=== PATIENT | male | born 1980 | race Two or more races ===

== ENCOUNTER 2021-07-26 00:38 | Emergency (ER) | payer SELFPAY ==
[~2021-07-26] VITALS: Ht 165.1 cm; Wt 65.8 kg
[2021-07-26 00:52] VITALS: BP 129/77
[2021-07-26] MEDS ORDERED: CEPH500T PO (01:00)
== END 2021-07-26 01:13 | disposition home or self-care (01) ==
LOC: ER 00:47
DX: T24.002A Burn of unspecified degree of unspecified site of left lower limb, except ankle and foot, initial encounter (principal); L03.314 Cellulitis of groin; Z59.00 Homelessness unspecified; X58.XXXA Exposure to other specified factors, initial encounter; Y93.89 Activity, other specified; Y92.89 Other specified places as the place of occurrence of the external cause; Y99.8 Other external cause status

== ENCOUNTER 2021-07-31 22:37 | Inpatient (IN) | payer MEDICAID ==
[~2021-07-31] VITALS: Ht 167.6 cm; Wt 64.4 kg
[~2021-07-31 22:37] MED LIST: CEPH500T PO
[2021-07-31] MEDS ORDERED: MORPHINE SULFATE INJ 2 MG/ML DISP.SYRIN IV ONE (23:00)
[2021-07-31] MEDS ORDERED: ONDANSETRON HCL/PF 4 MG/2 ML VIAL IVP ONE (23:00)
[2021-07-31] MEDS ORDERED: IV NS 0.9% 1,000 ML BAG IV ONE (23:00)
[2021-07-31] MEDS ORDERED: KETOROLAC TROMETHAMINE INJ 30 MG/ML VIAL IV ONE (23:00)
[2021-07-31 23:09] LABS: BILIRUBIN,URINE NEGATIVE (NEGATIVE); COLOR,URINE YELLOW (YELLOW); LEUKOCYTE ESTERASE ,URINE SMALL (NEGATIVE); NITRITE, URINE NEGATIVE (NEGATIVE); PROTEIN,URINE NEGATIVE (NEGATIVE); UGLUCOSE NEGATIVE (NEGATIVE); UROBILINOGEN,URINE 0.2 EU/dL (0.2)
--- NOTE | 2021-07-31 23:15 | NUR ---
BIBS PT A/O X 3 BHUTANESE SPEAKING, C/O SPIDER BITE ON TESTICLE, NOW COMPLAINING MORE PAIN WITH PUS TO TESTICLE AREA AND PENILE AREA.
[2021-07-31] MEDS ORDERED: CT SWABBABLE VALVE TRANS SET 1 EA INFUS.SET MC ONE (23:23)
[2021-07-31] MEDS ORDERED: IOHEXOL-300 100 ML VIAL IV ONE (23:23)
[2021-07-31] MEDS ORDERED: MORPHINE SULFATE INJ 4 MG/ML DISP.SYRIN ONE (23:33)
[2021-07-31] MEDS ORDERED: ONDANSETRON HCL/PF 4 MG/2 ML VIAL ONE (23:33)
[2021-07-31] MEDS ORDERED: KETOROLAC TROMETHAMINE 15 MG/ML VIAL ONE (23:33)
--- NOTE | 2021-07-31 23:35 | NUR ---
LABS COLLECTED AND SENT
--- NOTE | 2021-07-31 23:41 | NUR ---
PHYSICS TECHNICAL OFFICER AT BEDSIDE
--- NOTE | 2021-07-31 23:45 | NUR ---
COVID SWAB COLLECTED AND SENT
[2021-08-01 00:02] LABS: CALCIUM, SERUM 8.9 mg/dL (8.5-10.1); CREATININE 0.8 mg/dL (0.6-1.3); POTASSIUM 3.5 mmol/L (3.5-5.1)
[2021-08-01 00:10] LABS: BASOPHILS % (AUTO) 0.6 % (0.0-2.0); EOSINOPHILS % (AUTO) 1.3 % (0.0-6.0); HEMATOCRIT 38 % (39-51); HEMOGLOBIN 13.1 g/dL (13.5-17.5); LYMPHOCYTES # (AUTO) 1.1 K/uL (0.8-4.8); LYMPHOCYTES % (AUTO) 14.3 % (20.0-44.0); MEAN CORPUSCULAR HGB CONC 34 g/dl (31.0-36.0); MEAN CORPUSCULAR VOLUME 88 fL (80-96); MONOCYTES # (AUTO) 0.6 K/uL (0.1-1.30); MONOCYTES % (AUTO) 7.7 % (2.0-12.0); NEUTROPHILS # (AUTO) 6.1 K/uL (1.8-8.9); NEUTROPHILS % (AUTO) 76.1 % (43.0-81.0); PLATELET COUNT (AUTO) 222 K/uL (150-450); RED BLOOD CELL COUNT(AUTO) 4.31 MIL/uL (4.5-6.0)
--- NOTE | 2021-08-01 00:15 | NUR ---
PT OUT TO CT
[2021-08-01 00:18] LABS: ALBUMIN 3.3 g/dL (3.4-5.0); BILIRUBIN,DIRECT 0.1 mg/dL (0.0-0.2); BILIRUBIN,TOTAL 0.4 mg/dL (0.2-1.0); TOTAL PROTEIN, SERUM 6.9 g/dL (6.4-8.2)
[2021-08-01] MEDS ORDERED: VANCOMYCIN 1 GM in IV D5W 250 ML IV ONE (02:30)
[2021-08-01] MEDS ORDERED: PIPERACILLIN /TAZOBACTAM 3.375 G in IV D5W 50 ML IV ONE (02:30)
[2021-08-01] MEDS ORDERED: VANCOMYCIN 1 GM VIAL ONE (02:33)
[2021-08-01] MEDS ORDERED: PIPERACILLIN /TAZOBACTAM 3.375 G VIAL IV ONE (02:34)
[2021-08-01] MEDS ORDERED: HYDROCODONE/APAP 5/325MG TABLET PO PRN (04:30)
[2021-08-01] MEDS ORDERED: Z GUARD REMEDY 4 OZ OINT TP PRN (04:30)
[2021-08-01] MEDS ORDERED: MAG HYDROX/AL HYDROX/SIMETH 30 ML UDC PO PRN (04:30)
[2021-08-01] MEDS ORDERED: TEMAZEPAM 15 MG CAPSULE PO PRN (04:30)
[2021-08-01] MEDS ORDERED: ONDANSETRON HCL/PF 4 MG/2 ML VIAL IVP PRN (04:30)
[2021-08-01] MEDS ORDERED: ACETAMINOPHEN 325 MG TABLET PO PRN (04:30)
[2021-08-01] MEDS ORDERED: MAGNESIUM HYDROXIDE 30 ML UDC PO PRN (04:30)
--- NOTE | 2021-08-01 04:44 | NUR ---
REPORT GIVEN TO 3 LOUIE RN
[2021-08-01 04:55] VITALS: BP 109/77
[2021-08-01] MEDS ORDERED: PIPERACILLIN /TAZOBACTAM 3.375 G in IV D5W 50 ML IV SCH (05:00)
[2021-08-01 06:58] LABS: BACTERIA,URINE Few /HPF (None Seen); RBC,URINE 0-2 /HPF (0-2); SQUAMOUS EPITHELIAL CELL,UR 0-2 /HPF (None Seen)
--- NOTE | 2021-08-01 07:26 | NUR ---
RN OPENING NOTES RECEIVED PATIENT IN BED, ASLEEP, EASILY AROUSED. NO SIGNS OF ACUTE DISTRESS NOTED. ON ROOM AIR, NO SOB NOTED, BREATHING EVEN AND UNLABORED. DENIES ANY PAIN AT THIS TIME. NOTED WITH IV ACCESS ON RIGHT ANTECUBITAL #20G, INTACT AND PATENT, SALINE LOCKED. SAFETY MEASURE IN PLACE. BED IN LOWEST AND LOCKED OSITION, SR UP X2, CALL LIGHT PLACED WITHIN EASY REACH. WILL CONTINUE TO MONITOR.
--- NOTE | 2021-08-01 07:55 | NUR ---
RN DANIELE NOTES. NEW ADMIT PATIENT RECEIVED FROM ONE PERSONEL FROM ER VIA URN.PT AOX4 YOR[place] SPEAKING WITH A LITTLE CITIZEN OF [place].NO SIGN SOB/DISTRESS NOTED.NO COMPLAINED OF PAIN/DISCOMFORT.RAC #20G INTACT AND PATENT.ALL NEEDS ATTENDED,CALL LIGHT WITHIN REACH.SAFETY MEASURE IMPLACE LOW BED LOCK.WELL ENDORSE TO NEXT SHIFT.
[2021-08-01 08:00] VITALS: BP 130/61
[2021-08-01] MEDS: PANTOPRAZOLE 40 MG TABLET.DR PO SCH (08:28)
[2021-08-01] MEDS: PIPERACILLIN /TAZOBACTAM 3.375 G in IV D5W 100 ML IV SCH ×2 (08:58→15:58)
[2021-08-01] MEDS: VANCOMYCIN 1 GM in IV D5W 250ml IV SCH ×2 (11:15→18:21)
[2021-08-01] MEDS: BLOOD SUGAR DIAGNOSTIC 1 EACH STRIP VI SCH ×3 (11:32→21:50)
[2021-08-01] MEDS ORDERED: DEXTROSE 50%-WATER 50 ML DISP.SYRIN IV PRN (12:00)
[2021-08-01 16:00] VITALS: BP 116/79
[2021-08-01] MEDS: INSULIN REGULAR, HUMAN 100 UNIT/ML 3 ML VIAL SQ PRN (16:44)
--- NOTE | 2021-08-01 18:59 | NUR ---
RN CLOSING NOTES PATIENT IN BED, ASLEEP, EASILY AROUSED. NO SIGNS OF ACUTE DISTRESS NOTED. REMAINS STABLE ON ROOM AIR, NO SOB NOTED, BREATHING EVEN AND UNLABORED. IV ACCESS ON RIGHT ANTECUBITAL #20G AND LEFT FORE ARM #18G, INTACT AND PATENT, SALINE LOCKED. SAFETY MEASURE MAINTAINED. BED IN LOWEST AND LOCKED POSITION, SR UP X2, CALL LIGHT PLACED WITHIN EASY REACH. WILL ENDORSE TO NEXT SHIFT FOR DAMARIS.
--- NOTE | 2021-08-01 19:42 | NUR ---
RN OPENING NOTE PATIENT AWAKE IN BED. A/OX4. NO S/S OF DISTRESS, BREATHING WELL ON RM AIR. RAC#20, LFA #18 INTACT AND PATENT. SAFETY MEASURES IN PLACE: BED AT LOWEST POSITION, LOCKED, RAILS UP X3, CALL PAK WITHIN REACH. WILL CONTINUE TO MONITOR PATIENT.
[2021-08-01] MEDS: MORPHINE SULFATE INJ 2 MG/ML DISP.SYRIN IV PRN (21:49)
[2021-08-01] MEDS ORDERED: *INSULIN REGULAR(HUMULIN R)HUM 100 UNIT/ML VIAL SQ PRN (22:00)
[2021-08-02] MEDS: PIPERACILLIN /TAZOBACTAM 3.375 G in IV D5W 100 ML IV SCH ×3 (00:27→15:18)
[2021-08-02] MEDS: VANCOMYCIN 1 GM in IV D5W 250ml IV SCH ×3 (03:25→18:22)
[2021-08-02 06:17] LABS: BASOPHILS % (AUTO) 0.2 % (0.0-2.0); HEMATOCRIT 39 % (39-51); HEMOGLOBIN 13.1 g/dL (13.5-17.5); LYMPHOCYTES # (AUTO) 0.9 K/uL (0.8-4.8); LYMPHOCYTES % (AUTO) 9.8 % (20.0-44.0); MEAN CORPUSCULAR HGB CONC 33 g/dl (31.0-36.0); MEAN CORPUSCULAR VOLUME 90 fL (80-96); MONOCYTES # (AUTO) 0.7 K/uL (0.1-1.30); MONOCYTES % (AUTO) 6.9 % (2.0-12.0); NEUTROPHILS # (AUTO) 7.8 K/uL (1.8-8.9); NEUTROPHILS % (AUTO) 82.1 % (43.0-81.0); PLATELET COUNT (AUTO) 215 K/uL (150-450); WHITE BLOOD COUNT (AUTO) 9.5 K/uL (4.3-11.0)
[2021-08-02] MEDS: BLOOD SUGAR DIAGNOSTIC 1 EACH STRIP VI SCH ×4 (06:38→22:45)
[2021-08-02] MEDS: INSULIN REGULAR, HUMAN 100 UNIT/ML 3 ML VIAL SQ PRN ×3 (06:39→16:49)
[2021-08-02 06:50] LABS: CALCIUM, SERUM 8.5 mg/dL (8.5-10.1); CREATININE 0.9 mg/dL (0.6-1.3); MAGNESIUM 2.1 mg/dL (1.8-2.4); PHOSPHORUS 1.8 mg/dL (2.5-4.9); POTASSIUM 3.8 mmol/L (3.5-5.1)
--- NOTE | 2021-08-02 07:20 | NUR ---
RN CLOSING NOTE PATIENT ASLEEP IN BED. A/OX4. NO S/S OF DISTRESS, BREATHING ON RM AIR. RAC #20 & LFA #18 SL INTACT AND PATENT. SAFETY MEASURES IN PLACE: BED AT LOWEST POSITION, LOCKED, RAILS UP X3, CALL PAK WITHIN REACH. REPORT ENDORSED TO AND ACKNOWLEDGED BY OLIVA.
--- NOTE | 2021-08-02 07:22 | NUR ---
RN OPENING NOTES RECEIVED PATIENT IN BED, AWAKE. NO SIGNS OF ACUTE DISTRESS NOTED. STABLE ON ROOM AIR, NO SOB NOTED, BREATHING EVEN AND UNLABORED. DENIES ANY PAIN AT THIS TIME. IV ACCESS ON RIGHT ANTECUBITAL #20G AND LEFT FORE ARM #18G, INTACT AND PATENT, SALINE LOCKED. SAFETY MEASURE IN PLACE. BED IN LOWEST AND LOCKED POSITION, SR UP X2, CALL LIGHT PLACED WITHIN EASY REACH. WILL CONTINUE TO MONITOR PATIENT.
[2021-08-02] MEDS: PANTOPRAZOLE 40 MG TABLET.DR PO SCH (07:54)
--- NOTE | 2021-08-02 15:10 | NUR ---
RN NOTES LEFT FORE ARM IV ACCESS NOTED WITH INFILTRATION. LINE REMOVED, PRESSURE DRESSING APPLIED. NEW PERIPHERAL LINE INSERTED ON LEFT HAND #20G, WITH GOOD BLOOD RETURN, COVERED WITH TRANSPARENT DRESSING, PROCEDURE TOLERATED WELL.
[2021-08-02] MEDS ORDERED: K PHOS NEUTRAL 250 MG TABLET PO ONE (15:30)
--- NOTE | 2021-08-02 18:40 | NUR ---
RN CLOSING NOTES PATIENT IN BED, ASLEEP, EASILY AROUSED. NO SIGNS OF ACUTE DISTRESS NOTED. REMAINS STABLE ON ROOM AIR, NO SOB NOTED, BREATHING EVEN AND UNLABORED. IV ACCESS ON RIGHT ANTECUBITAL #20G AND LEFT HAND #20G, INTACT AND PATENT, SALINE LOCKED. SAFETY MEASURE MAINTAINED. BED IN LOWEST AND LOCKED POSITION, SR UP X2, CALL LIGHT PLACED WITHIN EASY REACH. WILL ENDORSE TO NEXT SHIFT FOR CONTINUITY OF CARE.
--- NOTE | 2021-08-02 19:15 | NUR ---
MS RN OPENING NOTES RECEIVED PATIENT IN BED, AWAKE, ALERT AND ORIENTED X4. NO SIGNS OF ACUTE DISTRESS NOTED. ON ROOM AIR, TOLERATING WELL. NO SOB NOTED. BREATHING EVENLY AND NONLABORED. DENIES ANY PAIN AT THIS TIME. IV ACCESS ON RIGHT ANTECUBITAL #20G AND LEFT FORE ARM #18G; INTACT AND PATENT, SALINE LOCKED. SAFETY MEASURE IMPLEMENTED; CALL LIGHT AND TABLE WITHIN EASY REACH, SIDE RAILS UP X2, BED IN LOWEST LOCKED POSITION. WILL CONTINUE PLAN OF CARE..
[2021-08-02] MEDS: MORPHINE SULFATE INJ 2 MG/ML DISP.SYRIN IV PRN (21:17)
[2021-08-02 21:28] VITALS: BP 125/76
[2021-08-02] MEDS ORDERED: CEFTRIAXONE 1 G in IV D5W 50 ML IV SCH (22:30)
[2021-08-02] MEDS: ACYCLOVIR 200 MG CAPSULE PO SCH (22:54)
[2021-08-02] MEDS ORDERED: CEFTRIAXONE 1 G VIAL ONE (23:32)
[2021-08-03] MEDS: BLOOD SUGAR DIAGNOSTIC 1 EACH STRIP VI SCH (06:29)
[2021-08-03 06:59] LABS: BASOPHILS % (AUTO) 0.9 % (0.0-2.0); EOSINOPHILS % (AUTO) 2.9 % (0.0-6.0); HEMATOCRIT 42 % (39-51); HEMOGLOBIN 13.6 g/dL (13.5-17.5); LYMPHOCYTES # (AUTO) 1.2 K/uL (0.8-4.8); LYMPHOCYTES % (AUTO) 25.2 % (20.0-44.0); MEAN CORPUSCULAR HGB CONC 33 g/dl (31.0-36.0); MEAN CORPUSCULAR VOLUME 90 fL (80-96); MONOCYTES # (AUTO) 0.5 K/uL (0.1-1.30); MONOCYTES % (AUTO) 11.5 % (2.0-12.0); NEUTROPHILS # (AUTO) 2.7 K/uL (1.8-8.9); NEUTROPHILS % (AUTO) 59.5 % (43.0-81.0); PLATELET COUNT (AUTO) 222 K/uL (150-450); RED BLOOD CELL COUNT(AUTO) 4.61 MIL/uL (4.5-6.0); WHITE BLOOD COUNT (AUTO) 4.6 K/uL (4.3-11.0)
--- NOTE | 2021-08-03 07:10 | NUR ---
MS RN OPENING NOTES RECEIVED PATIENT IN BED, AWAKE, ALERT AND ORIENTED X4. NO SIGNS OF ACUTE DISTRESS NOTED. ON ROOM AIR, TOLERATING WELL. NO SOB NOTED. BREATHING EVENLY AND NONLABORED. DENIES ANY PAIN AT THIS TIME. IV ACCESS ON RIGHT ANTECUBITAL #20G AND LEFT FORE ARM #18G; INTACT AND PATENT, SALINE LOCKED. SAFETY MEASURE IMPLEMENTED; CALL LIGHT AND TABLE WITHIN EASY REACH, SIDE RAILS UP X2, BED IN LOWEST LOCKED POSITION. COMFORT MEASURES PROVIDED.
--- NOTE | 2021-08-03 07:15 | NUR ---
MS RN CLOSING NOTES PATIENT IN BED, AWAKE, ALERT AND ORIENTED X4. NO SIGNS OF ACUTE DISTRESS NOTED. ON ROOM AIR, TOLERATING WELL. NO SOB NOTED. BREATHING EVENLY AND NONLABORED. DENIES ANY PAIN AT THIS TIME. SAFETY MEASURE IN PLACE. ENDORSED TO MORNING SHIFT FOR CONTINUITY OF CARE.
[2021-08-03 07:33] LABS: CALCIUM, SERUM 9.2 mg/dL (8.5-10.1); CREATININE 0.7 mg/dL (0.6-1.3); MAGNESIUM 2.4 mg/dL (1.8-2.4); PHOSPHORUS 2.6 mg/dL (2.5-4.9); POTASSIUM 4.3 mmol/L (3.5-5.1)
[2021-08-03] MEDS: ACYCLOVIR 200 MG CAPSULE PO SCH (08:26)
[2021-08-03] MEDS: PANTOPRAZOLE 40 MG TABLET.DR PO SCH (08:26)
[2021-08-03 09:00] VITALS: BP 100/61
[2021-08-03] MEDS ORDERED: DOXYCYCLINE HYCLATE (100 MG) 100 MG TABLET PO SCH (09:00)
--- NOTE | 2021-08-03 11:00 | NUR ---
MS RN NOTE SEEN BY DR. TERRELL WITH ORDER FOR DISCHARGE. HEALTH TEACHING DONE REGARDING DISCHARGE ORDER. VERBALIZED UNDERSTANDING AND APPRECIATION.
[2021-08-03] MEDS ORDERED: DOXY100T2 PO (11:02)
[2021-08-03] MEDS ORDERED: ACYC200C31 PO (11:02)
--- NOTE | 2021-08-03 11:16 | NUR ---
WOUND CARE CONSULT: PT PRESENTS WITH PINK AREAS TO SCROTUM/PERINEAL AREA, PRESENT ON ADMISSION. NO DRAINAGE NOTED. DEFER TO PMD AND ID MD. WILL SEE PRN. PT IS INDEPENDENT WITH BED MOBILITY AND IS CONTINENT.
--- NOTE | 2021-08-03 13:00 | NUR ---
MS RN NOTES PATIENT DISCHARGED ORDERED, IN STABLE CONDITION. IV ACCESS REMOVED AND COVERED WITH DRY DRESSING, TOLERATED WELL. NO PAIN. AMBULATORY AND SELF RESPONSIBLE. IN STABLE CONDITION. JUAN WENT HOME AT AROUND 1245. ENDORSED ACCORDINGLY.
== END 2021-08-03 12:45 | disposition home or self-care (01) | DRG 383 ==
LOC: ER 22:50 → MED 08-01 03:59
PROVIDERS: ADMIT Internal Medicine; ATTEND Internal Medicine
DX: B00.9 Herpesviral infection, unspecified (principal); K61.0 Anal abscess; E11.9 Type 2 diabetes mellitus without complications; N49.2 Inflammatory disorders of scrotum; Z20.822 Contact with and (suspected) exposure to COVID-19; Z59.00 Homelessness unspecified
CPT/HCPCS: 36415; 76870-TC; 80048-TC; 80076-TC; 80202-TC; 81001; 82962-TC; 83605-TC; 83735-TC; 84100-TC; 85025-TC; 85652-TC; 86140-TC; 86592; 86593; 87040-TC; 87081-TC; 87086-TC; 87491; 87591; 87806; C9803; G0378; J0696; J1815; J1885; J2270; J2405; J2543; J3370; J7030; J7050; J7060; Q9967

== ENCOUNTER 2022-04-07 17:31 | Emergency (ER) | payer SELFPAY ==
[~2022-04-07] VITALS: Ht 177.8 cm; Wt 79.4 kg
[~2022-04-07 17:31] MED LIST changes: +ACYC200C31 PO; -CEPH500T PO; +DOXY100T2 PO
[2022-04-07 17:57] VITALS: BP 130/97
[2022-04-07] MEDS ORDERED: CEPHALEXIN MONOHYDRATE 500 MG CAPSULE PO ONE ×2 (18:11→18:30)
[2022-04-07] MEDS ORDERED: CEPH500C2 PO (18:12)
--- NOTE | 2022-04-07 18:24 | NUR ---
seen and evaluated by dr stewart. medicated as ordered. d/c w/ prescription for antibiotic in stable condition stable condition.
== END 2022-04-07 18:32 | disposition home or self-care (01) ==
LOC: ER 17:40
DX: L03.116 Cellulitis of left lower limb (principal); I25.2 Old myocardial infarction; E11.9 Type 2 diabetes mellitus without complications; Z59.00 Homelessness unspecified; Z79.899 Other long term (current) drug therapy

== ENCOUNTER 2022-05-05 11:55 | Emergency (ER) | payer SELFPAY ==
[~2022-05-05] VITALS: Ht 170.2 cm; Wt 74.8 kg
[~2022-05-05 11:55] MED LIST changes: +CEPH500C2 PO
[2022-05-05 12:22] VITALS: BP 128/82
--- NOTE | 2022-05-05 14:18 | NUR ---
DR LUND IN TO SEE PATIENT. NO LONGER IN HOLDING ROOM. LEFT WITHOUT BEING SEEN BY ER MD.
== END 2022-05-05 14:21 | disposition left against medical advice (07) ==
LOC: ER 12:04
DX: Z53.21 Procedure and treatment not carried out due to patient leaving prior to being seen by health care provider (principal)

== ENCOUNTER 2022-10-23 14:04 | Emergency (ER) | payer MEDICAID ==
[~2022-10-23] VITALS: Ht 170.2 cm; Wt 72.6 kg
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
--- NOTE | 2022-10-23 14:30 | NUR ---
DR SHARIF AT BEDSIDE FOR EVAL
--- NOTE | 2022-10-23 14:38 | NUR ---
[facility] ART BEDSIDE INTERVIEWING PT, FOR POLICE NOTIFICATION
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
--- NOTE | 2022-10-23 16:00 | NUR ---
applied arm sling rt, placed some ice rt wrist
--- NOTE | 2022-10-23 17:35 | NUR ---
lapd at bedside.
[2022-10-23 17:55] VITALS: BP 120/79; TEMP 98; O2SAT 98
--- NOTE | 2022-10-23 17:55 | NUR ---
Patient discharged to home in stable condition. Written and verbal after care instructions given. Patient verbalizes understanding of instruction.
== END 2022-10-23 17:56 | disposition home or self-care (01) ==
LOC: ER 14:08
DX: S00.83XA Contusion of other part of head, initial encounter (principal); S60.221A Contusion of right hand, initial encounter; E11.9 Type 2 diabetes mellitus without complications; F17.200 Nicotine dependence, unspecified, uncomplicated; Z79.899 Other long term (current) drug therapy; Z59.00 Homelessness unspecified; Y08.89XA Assault by other specified means, initial encounter; Y93.89 Activity, other specified; Y92.89 Other specified places as the place of occurrence of the external cause; Y99.8 Other external cause status
CPT/HCPCS: 70450-TC; 73110; 73130-TC

== ENCOUNTER 2022-11-14 12:33 | Emergency (ER) | payer MEDICAID ==
[~2022-11-14] VITALS: Ht 167.6 cm; Wt 65.8 kg
[2022-11-14] MEDS ORDERED: IBUPROFEN 600 MG TABLET ONE (13:14)
[2022-11-14] MEDS ORDERED: ACETAMINOPHEN ES 500 MG TABLET ONE (13:14)
[2022-11-14] MEDS ORDERED: IBUPROFEN 600 MG TABLET PO ONE (13:30)
[2022-11-14] MEDS ORDERED: ACETAMINOPHEN ES 500 MG TABLET PO ONE (13:30)
[2022-11-14] MEDS ORDERED: AZIT250T PO (13:55)
[2022-11-14] MEDS ORDERED: ALBU8.5H8 INH (13:55)
[2022-11-14] MEDS ORDERED: IBUP-1953 PO (13:55)
[2022-11-14 14:08] VITALS: BP 110/70; TEMP 98.2; O2SAT 100
== END 2022-11-14 14:09 | disposition home or self-care (01) ==
LOC: ER 12:37
DX: J40 Bronchitis, not specified as acute or chronic (principal); E11.9 Type 2 diabetes mellitus without complications; I10 Essential (primary) hypertension; I25.2 Old myocardial infarction; F17.200 Nicotine dependence, unspecified, uncomplicated; Z79.899 Other long term (current) drug therapy; Z20.822 Contact with and (suspected) exposure to COVID-19; Z59.00 Homelessness unspecified
CPT/HCPCS: 99284; 71045; 87426; C9803

== ENCOUNTER 2023-05-26 15:21 | Emergency (ER) | payer MEDICAID ==
[~2023-05-26] VITALS: Ht 167.6 cm; Wt 77.1 kg
[~2023-05-26 15:21] MED LIST changes: +ALBU8.5H8 INH; +AZIT250T PO; +IBUP-1953 PO
[2023-05-26 15:25] VITALS: BP 121/63; TEMP 98.3; O2SAT 98
[2023-05-26 15:56] LABS: BASOPHILS # (AUTO) 0.1 K/uL (0.0-0.2); BASOPHILS % (AUTO) 0.8 % (0.0-2.0); EOSINOPHILS # (AUTO) 0.1 K/uL (0.0-0.7); EOSINOPHILS % (AUTO) 0.7 % (0.0-6.0); HEMATOCRIT 41 % (39-51); HEMOGLOBIN 13.6 g/dL (13.5-17.5); LYMPHOCYTES # (AUTO) 1.2 K/uL (0.8-4.8); LYMPHOCYTES % (AUTO) 14.7 % (20.0-44.0); MEAN CORPUSCULAR HEMOGLOBIN 30 PG (26.0-33.0); MEAN CORPUSCULAR HGB CONC 33 g/dl (31.0-36.0); MEAN CORPUSCULAR VOLUME 89 fL (80-96); MONOCYTES # (AUTO) 0.5 K/uL (0.1-1.30); MONOCYTES % (AUTO) 6.5 % (2.0-12.0); NEUTROPHILS # (AUTO) 6.5 K/uL (1.8-8.9); NEUTROPHILS % (AUTO) 77.3 % (43.0-81.0); PLATELET COUNT (AUTO) 215 K/uL (150-450); RED BLOOD CELL COUNT(AUTO) 4.56 MIL/uL (4.5-6.0); RED CELL DISTRIBUTION WIDTH 14.2 % (11.5-15.0); WHITE BLOOD COUNT (AUTO) 8.4 K/uL (4.3-11.0)
[2023-05-26 16:03] LABS: CALCIUM, SERUM 9.3 mg/dL (8.5-10.1); CARBON DIOXIDE 29 mmol/L (21-32); CHLORIDE 103 mmol/L (98-107); CREATININE 0.8 mg/dL (0.6-1.3); GLUCOSE 150 mg/dL (74-106); POTASSIUM 4.1 mmol/L (3.5-5.1); SODIUM SERUM 137 mmol/L (136-145); UREA NITROGEN, BLOOD 20 mg/dL (7-18)
== END 2023-05-26 18:33 | disposition left against medical advice (07) ==
LOC: ER 15:36
DX: R07.9 Chest pain, unspecified (principal); I10 Essential (primary) hypertension; I25.2 Old myocardial infarction; E11.9 Type 2 diabetes mellitus without complications; Z60.2 Problems related to living alone
CPT/HCPCS: 36415; 71045-TC; 80048-TC; 84484-TC; 85025-TC

== ENCOUNTER 2023-12-30 15:52 | Emergency (ER) | payer MEDICAID, OTHER ==
[~2023-12-30] VITALS: Ht 162.6 cm; Wt 65.8 kg
[2023-12-30 16:57] LABS: BASOPHILS % (AUTO) 0.7 % (0.0-2.0); EOSINOPHILS # (AUTO) 0.1 K/uL (0.0-0.7); EOSINOPHILS % (AUTO) 1.8 % (0.0-6.0); HEMATOCRIT 38 % (39-51); HEMOGLOBIN 12.6 g/dL (13.5-17.5); LYMPHOCYTES # (AUTO) 1.2 K/uL (0.8-4.8); LYMPHOCYTES % (AUTO) 20.8 % (20.0-44.0); MEAN CORPUSCULAR HEMOGLOBIN 30 PG (26.0-33.0); MEAN CORPUSCULAR HGB CONC 34 g/dl (31.0-36.0); MEAN CORPUSCULAR VOLUME 90 fL (80-96); MONOCYTES # (AUTO) 0.5 K/uL (0.1-1.30); MONOCYTES % (AUTO) 7.9 % (2.0-12.0); NEUTROPHILS # (AUTO) 3.9 K/uL (1.8-8.9); NEUTROPHILS % (AUTO) 68.8 % (43.0-81.0); PLATELET COUNT (AUTO) 227 K/uL (150-450); RED BLOOD CELL COUNT(AUTO) 4.16 MIL/uL (4.5-6.0); RED CELL DISTRIBUTION WIDTH 14.4 % (11.5-15.0); WHITE BLOOD COUNT (AUTO) 5.7 K/uL (4.3-11.0)
[2023-12-30 17:05] LABS: CARBON DIOXIDE 25 mmol/L (21-32); CHLORIDE 107 mmol/L (98-107); GLUCOSE 113 mg/dL (74-106); POTASSIUM 3.3 mmol/L (3.5-5.1); SODIUM SERUM 138 mmol/L (136-145); UREA NITROGEN, BLOOD 15 mg/dL (7-18)
[2023-12-30 17:10] LABS: ALANINE AMINOTRANSFERASE 26 U/L (12-78); ALBUMIN 3.6 g/dL (3.4-5.0); ALCOHOL, BLOOD < 3 mg/dL (0-10); ALKALINE PHOSPHATASE 101 U/L (46-116); ASPARTATE AMINOTRANSFERASE 37 U/L (15-37); BILIRUBIN,DIRECT 0.1 mg/dL (0.0-0.2); BILIRUBIN,TOTAL 0.5 mg/dL (0.2-1.0); SALICYLATE 2.9 mg/dL (2.8-20.0); TOTAL PROTEIN, SERUM 6.3 g/dL (6.4-8.2)
[2023-12-30 17:12] LABS: ACETAMINOPHEN <10 ug/ml (10-30)
[2023-12-30 17:24] LABS: APPEARANCE,URINE Clear (CLEAR); BILIRUBIN,URINE Negative (NEGATIVE); BLOOD, URINE Moderate Ery/uL (NEGATIVE); COLOR,URINE YELLOW (YELLOW); KETONES,URINE Negative (NEGATIVE); LEUKOCYTE ESTERASE ,URINE Negative (NEGATIVE); NITRITE, URINE Negative (NEGATIVE); PROTEIN,URINE Negative (NEGATIVE); UGLUCOSE Negative (NEGATIVE)
[2023-12-30 17:35] LABS: ADD URINE CULTURE NO; BACTERIA,URINE Few /HPF (None Seen); SQUAMOUS EPITHELIAL CELL,UR Few /HPF (None Seen)
[2023-12-30 17:38] LABS: AMPHETAMINE, URINE POSITIVE (NEGATIVE); BARBITURATE, URINE NEGATIVE (NEGATIVE); BENZODIAZEPINE, URINE NEGATIVE (NEGATIVE); CANNABINOID, URINE NEGATIVE (NEGATIVE); COCCAINE, URINE NEGATIVE (NEGATIVE); OPIATE, URINE NEGATIVE (NEGATIVE); PHENCYCLIDINE SCREEN,URINE NEGATIVE (NEGATIVE)
[2023-12-30] MEDS: POTASSIUM CHLORIDE 20 MEQ TAB.PRT.SR PO ONE (19:00)
[2023-12-30] MEDS ORDERED: POTASSIUM CHLORIDE 20 MEQ TAB.PRT.SR PO ONE (19:09)
[2023-12-31 08:31] VITALS: BP 125/60; TEMP 98.1; O2SAT 98
== END 2023-12-31 08:32 | disposition home or self-care (01) ==
LOC: ER 15:57
DX: R45.851 Suicidal ideations (principal); F15.10 Other stimulant abuse, uncomplicated; I10 Essential (primary) hypertension; E11.9 Type 2 diabetes mellitus without complications; F17.200 Nicotine dependence, unspecified, uncomplicated; Z79.624 Long term (current) use of inhibitors of nucleotide synthesis; Z20.822 Contact with and (suspected) exposure to COVID-19; Z79.899 Other long term (current) drug therapy
CPT/HCPCS: 36415; 80048-TC; 80076-TC; 81001; 85025-TC; G0480